=== PATIENT | male | born 1950 | race Caucasian/White ===

== ENCOUNTER 2018-07-28 00:50 | Outpatient (CLI) | payer MEDICARE, BC, SELFPAY ==
--- NOTE | 2018-07-28 11:00 | DI.RAD_ITS ---
SYMPTOM/DIAGNOSIS:POSTERIOR CHEST PAIN, NO TRAUMA LEFT RIBS AND PA AND LATERAL CHEST: A BB marked was placed in the area of the patient's pain. No rib fracture, lytic or blastic lesion is seen. The heart size is normal. The lungs are clear. No pneumothorax is seen. IMPRESSION: Negative chest and left ribs.
== END 2018-07-28 01:10 ==
PROVIDERS: PCP Internal Medicine; Visit Provider Internal Medicine
DX: R07.89 Other chest pain (principal)
CPT/HCPCS: 71046; 71100

== ENCOUNTER 2019-04-20 11:50 | Outpatient (REF) | payer MEDICARE, BC, SELFPAY ==
[2019-04-20 22:09] LABS: Hemoglobin A1C 5.2 % (4.5-6.2)
[2019-04-20 22:25] LABS: Anion Gap 12.1 mmol/L (3-11); BUN 11 mg/dL (7-18); CO2 24.9 mmol/L (21.0-32.0); CREATININE 0.85 mg/dL (0.70-1.30); Calcium 9.3 mg/dL (8.5-10.1); Chloride 102 mmol/L (98-107); Glucose 84 mg/dL (70-100); Potassium 4.2 mmol/L (3.5-5.1); Sodium 139 mmol/L (136-145)
[2019-04-22 10:00] LABS: PSA, Screening 0.7 ng/ml (0-4.5)
== END 2019-04-20 12:10 ==
LOC: NCHCN 11:50
PROVIDERS: PCP Internal Medicine; Visit Provider Internal Medicine
DX: R73.01 Impaired fasting glucose (principal); E66.9 Obesity, unspecified; Z12.5 Encounter for screening for malignant neoplasm of prostate
CPT/HCPCS: 80048; 84153; 83036

== ENCOUNTER → 2019-06-18 10:28 | Outpatient (BNVA) | payer MEDICARE, BC, SELFPAY | PROVIDERS: PCP Internal Medicine; Referring Provider Internal Medicine; Visit Provider Physical Therapy Assistant | DX: Z12.11 Encounter for screening for malignant neoplasm of colon (principal); Z86.010 Personal history of colon polyps ==

== ENCOUNTER 2019-07-13 07:08 | Day surgery (SDC) | payer MEDICARE, BC, SELFPAY ==
--- NOTE | 2019-07-13 06:43 | W.COLOREPORT ---
Date of service: 07/13/19 Time of Service: 08:24 Colonoscopy Report Date of procedure: 07/13/19 Pre-op diagnosis general: Hx of colon polyps Post-op diagnosis procedure note: other (cecal polyp, mild diverticulosis ) Procedure: Colonoscopy with polypectomy Surgeon: Aledya Knight Anesthesia proc note operative: other (General/ ASA 2/Ivy Herdnon, AJ) Estimated blood loss (mL): 3 Pathology: other (Cecal polyp) Complications: None Disposition: same day Indications: 68 y/o male with history of hyperlipidemia and obesity presents for colonoscopy screening pre-op. He reports he is currently getting over a cold. His last screening was in 2014, which was remarkable for tubular adenoma and hyperplastic polyps. He denies a family history of colon cancer. He denies any changes in bowel habits including bloody or black tarry stools, abdominal pain, diarrhea or constipation. Prep: Miralax/Dulcolax Procedure Start Time: 08:24 Procedure End Time: 08:43 Retraction Time: 15 minutes Findings: One small polyp at the TI A handfull of Diverticula in the right and left colon Procedure Description: After informed consent was obtained the patient was taken to the procedure room and placed in a left decubitous position. Monitors were applied and a time out was done. The patients name, date of , procedure, allergies to medications and metal in their body was reviewed. The patient was then sedated. Once sedated and comfortable a rectal exam was done. External exam was normal. Internal exam revealed a normal sphincter tone and no palpable masses. Unable to feel the prostate. The scope was then introduced and retro-flexed. No internal hemorrhoids, polyps or masses were identified on retro-flexion. The scope was then advanced to the cecum without difficulty. The TI and appendiceal orifice were identified. The prep was adequate. There was some bile stained mucus throughout the right colon which had to be washed off. The scope was then slowly retracted over 15 minutes back into the rectum. Polyps were removed with cold forceps at the TI. There were a handfull of Diverticula noted in the Right and left colon. The scope was removed and the patient was woken up and taken back to Same day surgery in stable condition. The patient tolerated the procedure well and there were no immediate complications. Follow up: The patient should follow up in 5 years unless they develop changes in bowel habits or other new gastrointestinal complaints.
--- NOTE | 2019-07-13 06:43 | W.PM.DSUDISC ---
Discharge Plan Disposition Patient Disposition: HOME Condition: Good Discharge Details Reason For Visit: Hx of colon polyps Attending Provider: Aleyda Knight Primary Care Provider: Russ Carroll Home Meds and New Rx's Prescriptions: Continued multivitamin [Daily Multi-Vitamin] 1 EACH tablet 1 ea PO DAILY RF: 0 atorvastatin 40 MG tablet 40 mg PO DAILY RF: 0 sertraline 100 MG tablet 100 mg PO DAILY RF: 0 aspirin [Aspir-81] 81 MG tablet,delayed release (DR/EC) 81 mg PO DAILY RF: 0 Discontinued polyethylene glycol 3350 17 gram/dose powder 238 g PO ONCE Qty: 238 RF: 0 bisacodyl [Dulcolax (bisacodyl)] 5 mg tablet,delayed release (DR/EC) 5 mg PO ONCE Qty: 4 RF: 0 Discharge Instructions Instructions: Diverticulosis (DC) Additional Instructions: Findings: 1 polyp Mild Diverticulosis Follow up: 5 years Please call if you develop: fevers >101.5 Nausea or Vomiting Abdominal pain that is not transient DAY SURGERY UNIT POST ENDOSCOPY INSTRUCTIONS 1. Because there will be medication in your system for the next 24 hours, you may feel a little sleepy. Your coordination will be affected. Therefore: a. Do not drive or operate dangerous equipment for 24 hours. b. Do not drink alcohol beverages for 24 hours (not even beer). c. Plan to go home and rest for the day. 2. Generally there are no restrictions on your activity after a day or so has gone by, but you may feel a bit fatigued for a few days. 3 After you arrive home you may have a light meal and return to a normal diet as you can tolerate it without feeling sick to your stomach. 4. After surgery, you may feel pain or discomfort. This should be only transient, but if it persists please contact your doctor. 5. If there are any questions regarding the findings of your procedure, please feel free to contact your doctor. 6. If you are unable to contact your doctor with a problem, contact the hospital at [phone]. 7. Continue all your regular medications unless directed otherwise. I understand the above instructions and have no questions. Signature of Patient or Responsible Adult Escort Date/Time Name of Responsible Adult Escort Signature of Nurse Date/Time Activity:: Activity as Tolerated Diet:: As Tolerated Discharge Orders Discharge Orders: Discharge Order (Routine); Ordered 07/13/19 Ordered By: Aleyda Knight DS: Diagnosis Discharge Diagnosis (1) Diverticulosis: Status: Acute
[2019-07-13 07:35] VITALS: BP 133/89; PULSE 73; RESP 16; TEMP 36; O2SAT 94
[2019-07-13] MEDS: Lactated Ringers 1,000 ML 80 ML IV (07:50)
--- NOTE | 2019-07-13 08:31 | BOWEL_PTH ---
PATIENT: Malick Koenig LOC: [facility] U#:[id number] AGE/SX: 68/M ROOM: RE07/13/[address]: Aleyda Knight MD : 1950 BED: DIS: 07/13/2019 SPEC #: [id number] RECD: 07/13/19 11:02 STATUS: JASMIN RE #: [id number] RADHA: 07/13/19 08:[address]: Aleyda Knight DEPT: Surgical Specimen RECD BY: Rianna Best ENTERED: 07/13/19 11:03 SP TYPE: Bowel OTHR DR: Russ Carroll Tissues: 1 - BIOPSY BOWEL Procedures: GROSS AND MICRO LEVEL 4 Comments: [id number]
[2019-07-13 09:25] VITALS: BP 137/89; PULSE 71; RESP 15; TEMP 36; O2SAT 97
== END 2019-07-13 10:07 | disposition home or self-care (01) ==
LOC: SUR 07:09
PROVIDERS: PCP Internal Medicine; Visit Provider Surgery
PROC: 0DJD8ZZ Inspection of Lower Intestinal Tract, Via Natural or Artificial Opening Endoscopic (ICD-10-PCS; CPT 45378; principal; 2019-07-13 08:30)
DX: Z12.11 Encounter for screening for malignant neoplasm of colon (principal); K63.89 Other specified diseases of intestine; Z86.010 Personal history of colon polyps; K57.30 Diverticulosis of large intestine without perforation or abscess without bleeding; Z87.19 Personal history of other diseases of the digestive system
CPT/HCPCS: 45380; 88305; J2704

== ENCOUNTER 2020-04-21 10:32 | Outpatient (REF) | payer MEDICARE, BC, SELFPAY ==
[2020-04-21 21:05] LABS: Calculated LDL 89 mg/dL (<100); Cholesterol 173 mg/dL (<200); HDL Cholesterol 56 mg/dL (40-60); Triglyceride 143 mg/dL (<150)
== END 2020-04-21 10:52 ==
LOC: NCHCN 10:32
PROVIDERS: PCP Internal Medicine; Visit Provider Internal Medicine
DX: E78.5 Hyperlipidemia, unspecified (principal); Z00.00 Encounter for general adult medical examination without abnormal findings; R73.03 Prediabetes; E66.9 Obesity, unspecified
CPT/HCPCS: 80061

== ENCOUNTER 2020-09-19 15:50 | Outpatient (REF) | payer MEDICARE, BC, SELFPAY ==
[2020-09-19 21:23] LABS: BUN 14 mg/dL (7-18); CREATININE 0.9 mg/dL (0.70-1.30); Calcium 9.1 mg/dL (8.5-10.1); Chloride 105 mmol/L (98-107); Glucose 99 mg/dL (74-106); Potassium 4.5 mmol/L (3.5-5.1); Sodium 143 mmol/L (136-145); TSH 1.24 uIU/mL (0.36-3.74); Vitamin B12 477 pg/mL (193-986)
[2020-09-19 22:09] LABS: HCT 39.8 % (40.0-50.0); HGB 13.8 g/dL (13.5-17.5); MCH 33.3 pg (27.0-33.0); MCHC 34.7 % (32.0-36.0); MCV 95.9 fL (80-95); MPV 9.7 fL (8.0-11.0); Platelet Count 205 10^3/uL (130-400); RBC 4.15 10^6/uL (4.36-5.78); RDW 11.2 % (11.8-14.1); RDW-SD 39.5 fL; WBC 5.34 10^3/uL (4.4-10.8)
[2020-09-21 12:17] LABS: Albumin 60.6 % (55.8-66.1); Total Protein 7.2 g/dL (6.3-8.2)
== END 2020-09-19 15:51 | disposition home or self-care (01) ==
LOC: NCHCN 15:50
PROVIDERS: PCP Internal Medicine; Visit Provider Internal Medicine
DX: G62.9 Polyneuropathy, unspecified (principal)
CPT/HCPCS: 80048; 85027; 82607; 84165; 84443

== ENCOUNTER → 2020-11-22 13:54 | Outpatient (BNVA) | payer MEDICARE, BC, SELFPAY | PROVIDERS: PCP Internal Medicine; Referring Provider Internal Medicine; Visit Provider Nurse Practitioner Adult Health | DX: M79.642 Pain in left hand (principal); E78.5 Hyperlipidemia, unspecified; E66.9 Obesity, unspecified; F32.9 Major depressive disorder, single episode, unspecified | CPT/HCPCS: 99203; 99215 ==

== ENCOUNTER 2021-04-01 09:08 | Emergency (ER) | payer MEDICARE, BC, SELFPAY ==
[2021-04-01 09:13] VITALS: BP 159/85; PULSE 62; RESP 16; TEMP 36.5; O2SAT 98
--- NOTE | 2021-04-01 09:15 | DI.RAD_ITS ---
Exam(s) XR KNEE LT 3V AP,LAT,ADRIENNE EXAM: XR KNEE LT 3V AP,LAT,ADRIENNE CLINICAL HISTORY: Left knee pain. TECHNIQUE: 2D digital imaging was performed of the left knee. Three images were obtained. AP, late ral and PA tunnel views were obtained. COMPARISON: No previous for comparison. FINDINGS: BONES: No acute fracture is present. No bony destructive lesion is seen. JOINTS: The knee is normally aligned. No joint effusion is seen. There are mild degenerative changes with periarticular spurring seen in the medial femoral tibial joint of the patellofemoral joint. Cho ndrocalcinosis is seen in the femoral tibial joint. SOFT TISSUE: Normal. Atherosclerosis. IMPRESSION: No acute abnormality. Mild degenerative changes. DATA REPOSITORY: RADIATION DOSE DELIVERED:
--- NOTE | 2021-04-01 09:16 | W.ED.GENAD ---
Discharge Plan Disposition Patient Disposition: HOME Condition: Stable Discharge Details Clinical Impression: Left knee sprain Primary Care Provider: Jass Edward ED Provider: Ekta Jacob Home Meds and New Rx's Prescriptions: No Action multivitamin [Daily Multi-Vitamin] 1 EACH tablet 1 ea PO DAILY RF: 0 atorvastatin 40 MG tablet 40 mg PO DAILY RF: 0 aspirin [Aspir-81] 81 MG tablet,delayed release (DR/EC) 81 mg PO DAILY RF: 0 sertraline 100 mg tablet 50 mg PO DAILY RF: 0 Discharge Instructions Instructions: Knee Sprain (ED) Additional Instructions: X-rays today are read as being within normal limits. Weightbearing as tolerated. Rest ice compression elevation. Wear splint as tolerated for pain when up walking around. When at rest no need to wear splint. Please take Tylenol every 4-6 hours as needed for pain. If continued pain in 1 to 2 weeks please call and make an appointment with orthopedics for follow-up. Follow up with primary care provider in 3-5 days. Return to ED sooner if any worsening or concerns. Increase oral fluids. Please take Tylenol or Ibuprofen with food every 4-6 hours as needed for pain and swelling. Referrals: Jass Edward MD [Primary Care Provider] - Jovon Thakkar MD [[facility] STAFF PHYSICIAN] - Return if symptoms worsen Discharge Data Discharge Date/Time-TO BE ENTERED AT DEPARTURE: 04/01/21 11:02 Medical Decision Making 30-year-old male presents to the ER with chief complaint of left knee pain after a twisting movement yesterday. Patient reports pain with weightbearing to the lateral aspect of the joint. He denies any fall. No previous surgeries to the knee. No obvious deformity or swelling noted on exam. He did take aspirin prior to arrival. He does have a past medical history of depression, obesity, arthralgia, diverticulosis, umbilical hernia, hyperlipidemia. He has had arthroscopic knee surgery in the past. He denies any surgery on his left knee. X-rays ordered at this time to rule out joint effusion or bony abnormality. I do suspect ligament sprain. Imaging protocol: XR Left knee. Views: 3 views. COMPARISON: No relevant prior studies available. FINDINGS: Bones/joints: No fracture or other osseous abnormality. Joint spaces are well preserved. No significant effusion. No varus or valgus angulation. Soft tissues: Normal. IMPRESSION: Normal knee. X-ray results are noted above. Will order a hinged knee brace for patient discussed weightbearing as tolerated. RICE procedures and follow-up with orthopedics if needed in 1 to 2 weeks. Discussed x-ray results with patient. Patient remains alert and oriented hemodynamically stable but ambulatory upon discharge. This text was generated using [employer] dictation system, please disregard any oddities of phrase or misspellings. HPI General Mode of arrival: ambulatory. Date/Time Provider Initiated Documentation: 04/01/21 09:09. Limitations to Documentation: no limitations. Information obtained by: patient and old records reviewed. HPI Narrative: 30-year-old male presents to the ER with chief complaint of left knee pain after a twisting movement yesterday. Patient reports pain with weightbearing to the lateral aspect of the joint. He denies any fall. No previous surgeries to the knee. No obvious deformity or swelling noted on exam. He did take aspirin prior to arrival. He does have a past medical history of depression, obesity, arthralgia, diverticulosis, umbilical hernia, hyperlipidemia. He has had arthroscopic knee surgery in the past. He denies any surgery on his left knee. Related Data Home Medications Medication Instructions Recorded Confirmed aspirin [Aspir-81] 81 mg PO DAILY tab-cap 06/14/14 04/01/21 atorvastatin 40 mg PO DAILY tab-cap 06/14/14 04/01/21 multivitamin [Daily Multi-Vitamin] 1 ea PO DAILY 06/14/14 04/01/21 sertraline 100 mg tablet 50 mg PO DAILY tab-cap 09/27/20 04/01/21 Allergies Allergy/AdvReac Type Severity Reaction Status Date / Time No Known Allergies Allergy Unverified 04/01/21 09:17 Review of Systems All systems reviewed & are unremarkable except as noted in HPI and below Musculoskeletal Musculoskeletal: Reports as per HPI and Reports arthralgias [facility] Medical History Actinic keratosis of multiple sites of head and neck Diverticulosis Hearing impaired person High cholesterol History of depression History of positive PPD Hx of adenomatous colonic polyps Left hand pain Perennial allergic rhinitis Peripheral neuropathy Positive PPD Seborrheic keratosis Skin lesion of face Tinnitus of both ears Surgical History History of colonoscopy (~07/13/19) 2015-Tubular adenoma Hx of arthroscopic knee surgery Social History Smoking/Tobacco Use Status: Former Tobacco Use Quit Date: 07/01/84 Smoking risk assessment performed?: Yes Alcohol Intake: current Alcohol Intake frequency: 3 or more drinks per day Alcohol type: beer Drug use: Occasionally Substance use type: marijuana Details: alcohol: t-4, 4 beers. Marijuana: t-5, bowl Household members: spouse Housing: house Number of Children: 2 number of grandchildren: 1 What is your relationship status?: Panel score (0-1 are the most socially isolated patients): 1 What type of physical activity do you participate in: walking Seatbelt use: always Do you feel safe at home: Yes Do you feel safe in your relationship?: Yes Exam Narrative Exam Narrative: Constitutional: Alert and oriented x3. Appears stated age. Normal body habitus. Head: Normocephalic, no trauma. Chest: RRR, Normal S1, S2, distal pulses intact. Resp: Lungs clear to auscultation bilaterally, no wheezes, rales, or rhonchi. Musculoskeletal: 5/5 strength to all four extremities. No obvious deformity, no obvious swelling. Does have some lateral joint tenderness. Negative anterior posterior drawer test. Distal pulses intact. Extremity is pink warm dry. No edema. Skin: No suspicious rashes or lesions. Capillary refill less than 2 sec. Neurologic: Alert and oriented x 3.
--- NOTE | 2021-04-01 10:22 | DI.VRAD_ITS ---
PROCEDURE INFORMATION: Exam: XR Left Knee Exam date and time: 04/01/2021 9:17 AM Age: 70 years old Clinical indication: Other: Left knee pain TECHNIQUE: Imaging protocol: XR Left knee. Views: 3 views. COMPARISON: No relevant prior studies available. FINDINGS: Bones/joints: No fracture or other osseous abnormality. Joint spaces are well preserved. No significant effusion. No varus or valgus angulation. Soft tissues: Normal. IMPRESSION: Normal knee. Dictated and Authenticated by: Greg Hernandez MD. Ordering:LEELEE Dash MD
[2021-04-01 11:03] VITALS: BP 159/85; PULSE 62; RESP 16; TEMP 36.5; O2SAT 98
== END 2021-04-01 11:02 | disposition home or self-care (01) ==
PROVIDERS: Emergency Provider Registered Nurse Emergency; PCP Family Medicine
DX: S83.8X2A Sprain of other specified parts of left knee, initial encounter (principal); X50.9XXA Other and unspecified overexertion or strenuous movements or postures, initial encounter
CPT/HCPCS: 29505; 73562; 99283

== ENCOUNTER 2021-06-13 13:08 | Outpatient (CLI) | payer MEDICARE, BC, SELFPAY ==
--- NOTE | 2021-06-13 12:45 | DI.RAD_ITS ---
Exam(s) XR SHOULDER RT COMPLETE 2+V EXAM: XR SHOULDER RT COMPLETE 2+V CLINICAL HISTORY: right shoulder pain. TECHNIQUE: 2D digital imaging was performed of the right shoulder. Two images were obtained. AP an d axillary views were obtained. COMPARISON: No exams were available for comparison FINDINGS: BONES: No acute fracture is present. No bony destructive lesion is seen. JOINTS: No dislocation present. Mild degenerative changes are seen at both the acromioclavicular join t and glenohumeral joint. SOFT TISSUE: Calcification in the soft tissues adjacent to the greater tuberosity is seen consistent with calcific tendinitis. IMPRESSION: Degenerative changes in calcific tendinitis involving the right shoulder as described. DATA REPOSITORY: RADIATION DOSE DELIVERED:
== END 2021-06-13 13:09 | disposition home or self-care (01) ==
LOC: DIORS 13:08
PROVIDERS: PCP Family Medicine; Referring Provider Family Medicine; Visit Provider Student in an Organized Health Care Education/Training Program
DX: M25.511 Pain in right shoulder (principal); M75.31 Calcific tendinitis of right shoulder
CPT/HCPCS: 99203; 99214; 73030

== ENCOUNTER 2021-07-07 00:49 | Outpatient (CLI) | payer MEDICARE, BC, SELFPAY ==
--- NOTE | 2021-07-07 10:00 | DI.RAD_ITS ---
Exam(s) XR ANKLE RT COMPLETE EXAM: XR ANKLE RT COMPLETE CLINICAL HISTORY: RT ANKLE PAIN, M25.571. TECHNIQUE: 2D digital imaging was performed of the right ankle. Three images were obtained. AP, la teral and oblique views were obtained. COMPARISON: No exams were available for comparison FINDINGS: BONES: No acute fracture is present. No bony destructive lesion is seen. Well corticated osseous den sities are seen at the tip of the lateral malleolus. These likely reflect old injury. JOINTS: The ankle mortise is normally aligned. SOFT TISSUE: Normal. IMPRESSION: No acute abnormality. DATA REPOSITORY: RADIATION DOSE DELIVERED:
== END 2021-07-07 01:09 ==
PROVIDERS: PCP Family Medicine; Visit Provider Family Medicine
DX: M25.571 Pain in right ankle and joints of right foot (principal)
CPT/HCPCS: 73610

== ENCOUNTER → 2021-08-15 10:27 | Outpatient (BNVA) | payer MEDICARE, BC, SELFPAY | PROVIDERS: PCP Family Medicine; Referring Provider Family Medicine; Visit Provider Student in an Organized Health Care Education/Training Program | DX: M75.31 Calcific tendinitis of right shoulder (principal) | CPT/HCPCS: 20610; 99214; J1030 ==

== ENCOUNTER 2021-09-22 02:06 | Outpatient (CLI) | payer MEDICARE, BC, SELFPAY ==
--- NOTE | 2021-09-22 07:00 | DI.MRI_ITS ---
Exam(s) MR UPPER JOINT RT WO EXAM: MR UPPER JOINT RT WO CLINICAL HISTORY: continued Right shoulder pain,CALCIFIC TENDONITIS,M75.31. TECHNIQUE: Multiplanar multisequence MRI was performed. COMPARISON: No exams were available for comparison FINDINGS: BONES: There is no fracture or contusion pattern. JOINTS: Mild degenerative changes are seen at the acromioclavicular joint. The glenohumeral joint is normal. TENDONS: Supraspinatus: There is a full-thickness tear of the supraspinatus tendon anteriorly. There is tendi nosis of the underlying supraspinatus. Infraspinatus: Unremarkable. Subscapularis: There is tendinosis of the subscapularis tendon. Teres Minor: Unremarkable. Biceps and [place]: Unremarkable. MUSCLES: There is mild fatty atrophy of the teres minor muscle. The remaining visualized portions of the rotator cuff muscles are unremarkable. GLENOID LABRUM: Unremarkable on this noncontrast examination. SOFT TISSUES: Unremarkable. LIGAMENTS: Unremarkable. OTHER: There is fluid in the subacromial subdeltoid bursa. IMPRESSION: 1. Full-thickness tear of the supraspinatus tendon. 2. Tendinosis of the supraspinatus and subscapularis tendons. 3. Mild fatty atrophy of the teres minor muscle. 4. Degenerative changes of the AC joint. DATA REPOSITORY:
== END 2021-09-22 02:26 ==
PROVIDERS: PCP Family Medicine; Visit Provider Student in an Organized Health Care Education/Training Program
DX: M75.31 Calcific tendinitis of right shoulder (principal); M19.011 Primary osteoarthritis, right shoulder; M75.101 Unspecified rotator cuff tear or rupture of right shoulder, not specified as traumatic
CPT/HCPCS: 73221

== ENCOUNTER → 2021-09-26 08:40 | Outpatient (BNVA) | payer MEDICARE, BC, SELFPAY | PROVIDERS: PCP Family Medicine; Referring Provider Family Medicine; Visit Provider Student in an Organized Health Care Education/Training Program | DX: M75.31 Calcific tendinitis of right shoulder (principal); M75.21 Bicipital tendinitis, right shoulder; M75.101 Unspecified rotator cuff tear or rupture of right shoulder, not specified as traumatic; M75.51 Bursitis of right shoulder | CPT/HCPCS: 99214 ==

== ENCOUNTER → 2021-11-07 08:44 | Outpatient (BNVA) | payer MEDICARE, BC, SELFPAY | PROVIDERS: PCP Family Medicine; Referring Provider Family Medicine; Visit Provider Student in an Organized Health Care Education/Training Program | DX: M75.101 Unspecified rotator cuff tear or rupture of right shoulder, not specified as traumatic (principal); M75.31 Calcific tendinitis of right shoulder | CPT/HCPCS: 99213 ==

== ENCOUNTER 2022-08-07 11:27 | Outpatient (REF) | payer MEDICARE, BC, SELFPAY ==
[2022-08-07 16:02] LABS: ALT 38 U/L (16-63); AST 58 U/L (15-37); Alkaline Phosphatase 57 U/L (46-116); Anion Gap 6.8 mmol/L (3-11); BUN 13 mg/dL (7-18); Bilirubin, Total 0.3 mg/dL (0.2-1.0); CO2 30.2 mmol/L (21.0-32.0); CREATININE 0.8 mg/dL (0.70-1.30); Calcium 9.1 mg/dL (8.5-10.1); Calculated LDL 74 mg/dL (<100); Chloride 103 mmol/L (98-107); Cholesterol 142 mg/dL (<200); Estimated GFR 94.03 (mL/min/1.73m2); Glucose 117 mg/dL (74-106); HDL Cholesterol 60 mg/dL (40-60); Potassium 5.2 mmol/L (3.5-5.1); Sodium 140 mmol/L (136-145); Total Protein 6.9 g/dL (6.4-8.2); Triglyceride 44 mg/dL (<150)
== END 2022-08-07 11:28 | disposition home or self-care (01) ==
LOC: NCHCN 11:27
PROVIDERS: PCP Family Medicine; Visit Provider Family Medicine
DX: E78.5 Hyperlipidemia, unspecified (principal); E66.9 Obesity, unspecified
CPT/HCPCS: 80053; 80061

== ENCOUNTER 2023-08-14 14:00 | Outpatient (REF) | payer MEDICARE, BC, SELFPAY ==
[2023-08-14 16:41] LABS: Hemoglobin A1C 5.7 % (<5.7)
[2023-08-14 17:12] LABS: ALT 39 U/L (16-63); AST 56 U/L (15-37); Albumin 4.1 g/dL (3.4-5.0); Alkaline Phosphatase 54 U/L (46-116); Anion Gap 9.1 mmol/L (3-11); BUN 11 mg/dL (7-18); Bilirubin, Total 0.7 mg/dL (0.2-1.0); CO2 29.9 mmol/L (21.0-32.0); CREATININE 0.8 mg/dL (0.70-1.30); Calcium 9.3 mg/dL (8.5-10.1); Calculated LDL 81 mg/dL (<100); Chloride 103 mmol/L (98-107); Cholesterol 164 mg/dL (<200); Estimated GFR 93.45 (mL/min/1.73m2); Glucose 104 mg/dL (74-106); HDL Cholesterol 71 mg/dL (40-60); Sodium 142 mmol/L (136-145); Total Protein 7.5 g/dL (6.4-8.2); Triglyceride 61 mg/dL (<150)
== END 2023-08-14 14:01 | disposition home or self-care (01) ==
LOC: NCHCN 14:00
PROVIDERS: PCP Family Medicine; Visit Provider Family Medicine
DX: E78.5 Hyperlipidemia, unspecified (principal); R73.03 Prediabetes
CPT/HCPCS: 80053; 80061; 83036

== ENCOUNTER 2024-04-29 00:50 | Outpatient (CLI) | payer MEDICARE, BC, SELFPAY ==
--- NOTE | 2024-04-29 09:50 | DI.RAD_ITS ---
Exam(s) XR HIP LT COMPLETE AP PELVIS EXAM: XR HIP LT COMPLETE AP PELVIS CLINICAL HISTORY: LT HIP PAIN,M25.552. TECHNIQUE: 2D digital imaging was performed. Two views. COMPARISON: No exams were available for comparison FINDINGS: BONES: No acute fracture is present. No bony destructive lesion is seen. JOINTS: No dislocation present. The SI joints and pubic symphysis are intact. Mild bilateral acetabul ar spurring. SOFT TISSUE: Normal. IMPRESSION: mild degenerative changes of both hips. DATA REPOSITORY: RADIATION DOSE DELIVERED:
== END 2024-04-29 01:10 ==
LOC: DI 00:51
PROVIDERS: PCP Family Medicine; Visit Provider Family Medicine
DX: M16.0 Bilateral primary osteoarthritis of hip (principal)
CPT/HCPCS: 73502

== ENCOUNTER → 2024-07-09 13:37 | Outpatient (BNVA) | payer MEDICARE, BC, SELFPAY | PROVIDERS: PCP Family Medicine; Referring Provider Family Medicine | DX: M70.62 Trochanteric bursitis, left hip (principal); M70.72 Other bursitis of hip, left hip | CPT/HCPCS: 99213 ==

== ENCOUNTER 2024-08-06 08:38 | Outpatient (REF) | payer MEDICARE, BC, SELFPAY ==
[2024-08-06 14:25] LABS: Abs Immature Grans 0.01 10^3/uL (0.0-0.06); Absolute Basophil Count 0.04 10^3/uL (0.0-0.2); Absolute Eosinophil Count 0.19 10^3/uL (0.0-0.7); Absolute Lymphocyte Count 1.03 10^3/uL (1.2-3.4); Absolute Monocyte Count 0.36 10^3/uL (0.1-0.8); Absolute Neutrophil Count 2.68 10^3/uL (1.2-6.7); Basophils % 0.9 %; Eosinophils % 4.4 %; HCT 45.6 % (40.0-50.0); HGB 15.2 g/dL (13.5-17.5); Immature Grans % 0.2 %; Lymphocytes % 23.9 %; MCH 32.3 pg (27.0-33.0); MCHC 33.3 % (32.0-36.0); MCV 97 fL (80-95); MPV 9.7 fL (8.0-11.0); Monocytes % 8.4 %; Neutrophils % 62.2 %; Platelet Count 220 10^3/uL (130-400); RBC 4.71 10^6/uL (4.36-5.78); RDW 11.1 % (11.8-14.1); WBC 4.31 10^3/uL (4.4-10.8)
[2024-08-06 14:50] LABS: Hemoglobin A1C 5.6 % (<5.7)
[2024-08-06 14:59] LABS: ALT 34 U/L (16-63); AST 62 U/L (15-37); Albumin 4.2 g/dL (3.4-5.0); Alkaline Phosphatase 51 U/L (46-116); Anion Gap 4.7 mmol/L (3-11); BUN 11 mg/dL (7-18); Bilirubin, Total 0.62 mg/dL (0.2-1.0); CO2 32.3 mmol/L (21.0-32.0); CREATININE 0.9 mg/dL (0.70-1.30); Calcium 9.3 mg/dL (8.5-10.1); Calculated LDL 72 mg/dL (<100); Chloride 102 mmol/L (98-107); Cholesterol 157 mg/dL (<200); Estimated GFR 89.62 (mL/min/1.73m2); Glucose 116 mg/dL (74-106); HDL Cholesterol 72 mg/dL (40-60); Potassium 5.1 mmol/L (3.5-5.1); Sodium 139 mmol/L (136-145); Total Protein 7.5 g/dL (6.4-8.2); Triglyceride 65 mg/dL (<150)
== END 2024-08-06 08:39 | disposition home or self-care (01) ==
LOC: NCHCN 08:38
PROVIDERS: PCP Family Medicine; Visit Provider Family Medicine
DX: E78.5 Hyperlipidemia, unspecified (principal); R73.03 Prediabetes; Z00.00 Encounter for general adult medical examination without abnormal findings
CPT/HCPCS: 80053; 80061; 83036; 85025

== ENCOUNTER → 2024-08-10 10:28 | Outpatient (BNVA) | payer MEDICARE, BC, SELFPAY | PROVIDERS: PCP Family Medicine; Referring Provider Family Medicine; Visit Provider Student in an Organized Health Care Education/Training Program | DX: M70.72 Other bursitis of hip, left hip (principal); M70.62 Trochanteric bursitis, left hip | CPT/HCPCS: 99213 ==

== ENCOUNTER 2024-08-31 01:18 | Outpatient (CLI) | payer MEDICARE, BC, SELFPAY ==
--- NOTE | 2024-08-31 08:20 | DI.MRI_ITS ---
Exam(s) MR LOWER JOINT LT WO EXAM: MR LOWER JOINT LT WO CLINICAL HISTORY: PAIN,trochanteric bursitis lt hip,m70.62,ischial bursitis, lt,M70.72 TECHNIQUE: Multiplanar multisequence MRI of the hip was performed. COMPARISON: CR XR HIP LT COMPLETE AP PELVIS from 04/29/2024 FINDINGS: MARROW:There is no evidence of fracture, bone contusion, nor avascular necrosis. There are no signif icant osseous lesions.There is a small degenerative cysts in the lateral aspect of the right femoral head measuring 5-6 mm. EFFUSION: There is a physiologic amount of fluid in the left hip joint. There appears to be a small joint effusion in the opposite-right hip. BURSAE: There is no evidence of trochanteric bursitis. There is no evidence of iliopsoas bursitis no r signal abnormality in the lesser trochanter.. HIP JOINT SPACE: There is moderate amount of generalize articular cartilage loss in the left hip; sli ghtly less so in the right hip.There is no hypertrophy of the ligamentum teres nor signal abnormality at the fovea centralis. LABRUM: There is cystic degenerative change in the superior-anterosuperior left hip labrum and there is a paralabral cyst extending from this level superiorly measuring 1.3 x 1.1 cm. There are degenera tion subarticular cysts in the superolateral left acetabulum. TENDONS: There is some fluid collection deep to the left gluteus medius, consistent with element of g luteus minimus bursitis mild signal abnormality in the left gluteus medius musculotendinous junction. No high-grade tear. No evidence of greater trochanter bursitis ISCHIAL TUBEROSITY/HAMSTRING: There is significant fluid signal at the level of the common hamstrings attachment site of both ischial tuberosities, left more so than right. Findings in the level are co nsistent with bilateral ischial tuberosity bursitis (left more so than right). Some partial tearing of the common hamstrings tendons noted. There is no abnormal intraosseous signal at the level of the ischial tuberosities and pubic rami. There are small degenerative cysts in the right-side of the symphysis pubis incidentally noted. OTHER: Moderately enlarged prostate. Relatively uniform thickening of the urinary bladder wall. No obturator adenopathy. IMPRESSION: 1. There is bilateral (left greater than right) ischial tuberosity bursitis. 2. Left gluteus minimus bursitis 3. Moderate left hip osteoarthritis and milder right hip osteoarthritis. There is no significant lef t hip joint effusion. There is a small right hip joint effusion. No obvious loose intra-articular b odies. 4. Labral tearing in the anterior superior left labrum. There appears to be a paralabral cyst as wel l as degenerative subarticular cysts in the superolateral left acetabulum at this level. 5. enlarged prostate and relatively uniform bladder wall thickening consistent with element of outlet obstruction. DATA REPOSITORY:
--- NOTE | 2024-08-31 17:54 | DI.VRAD_ITS ---
PROCEDURE INFORMATION: Exam: MR Left Lower Extremity Joint Without Contrast; Hip Exam date and time: 08/31/2024 7:42 AM Age: 73 years old Clinical indication: Pain; Hip; Left TECHNIQUE: Imaging protocol: Magnetic resonance imaging of the left lower extremity joint without contrast. Exam focused on the hip. Total images: 582 COMPARISON: CR XR HIP LT COMPLETE AP PELVIS 04/29/2024 9:42 AM FINDINGS: Bones/joints: No significant bone marrow edema. Bilateral physiologic hip fluid. [id number] bilateral hip articular cartilaginous thinning. 6 mm cyst lateral aspect right femoral head. 9 mm nonspecific well-circumscribed STIR hyperintense left sacral lesion which is T1 occult. Subchondral likely degenerative cysts lateral acetabulum, left greater than right. Fluid adjacent to both ischial tuberosities, left greater than right. Subchondral degenerative cyst right symphysis pubis. Labrum: STIR hyperintense foci bilateral hip labrum. Soft tissues: Small collection of fluid deep to left gluteus minimus muscle. Bladder: Mild smooth bladder wall thickening. Reproductive: Prostatomegaly. IMPRESSION: 1. Bilateral ischial tuberosity bursitis. 2. Left gluteus minimus bursitis. 3. Hip osteoarthritis, left greater than right. 4. Possible small labral tears. 5. Bladder wall thickening possibly outlet obstruction related. Dictated and Authenticated by: Greg Adorno MD. Orderin Xander Lomeli MD
== END 2024-08-31 01:38 ==
LOC: DI 01:19
PROVIDERS: PCP Family Medicine; Visit Provider Student in an Organized Health Care Education/Training Program
DX: M70.62 Trochanteric bursitis, left hip
CPT/HCPCS: 73721

== ENCOUNTER → 2024-09-17 08:08 | Outpatient (BNVA) | payer MEDICARE, BC, SELFPAY | PROVIDERS: PCP Family Medicine; Referring Provider Family Medicine; Visit Provider Student in an Organized Health Care Education/Training Program | DX: M70.72 Other bursitis of hip, left hip (principal); M70.62 Trochanteric bursitis, left hip | CPT/HCPCS: 99213 ==

== ENCOUNTER 2025-01-20 14:01 | Outpatient (REF) | payer MEDICARE, BC, SELFPAY | END 2025-01-20 14:02 | disposition home or self-care (01) | LOC: NCHCN 14:01 | PROVIDERS: PCP Family Medicine; Visit Provider Family Medicine | DX: Z78.9 Other specified health status (principal) | CPT/HCPCS: 86765 ==

== ENCOUNTER 2025-01-27 03:00 | Outpatient (CLI) | payer MEDICARE, BC, SELFPAY ==
--- NOTE | 2025-01-27 08:00 | DI.RAD_ITS ---
Exam(s) XR FOOT RT COMPLETE EXAM: XR FOOT RT COMPLETE CLINICAL HISTORY: Painful Foreign body rt foot, M79.671, rt foot pain, S90.851A. TECHNIQUE: 2D digital imaging was performed. Three views. COMPARISON: CR LEFT HEEL (OS CALCIS) from 02/14/2010 FINDINGS: BONES: No acute fracture is present. No bony destructive lesion is seen. Tiny plantar calcaneal spur. Ossicle posterior to the talus. JOINTS: No dislocation present. Minimal degenerative changes. SOFT TISSUE: Normal. IMPRESSION: small plantar calcaneal spur. DATA REPOSITORY: RADIATION DOSE DELIVERED:
== END 2025-01-27 03:20 ==
LOC: DI 03:00
PROVIDERS: PCP Family Medicine; Visit Provider Podiatrist
DX: M79.671 Pain in right foot (principal); R20.2 Paresthesia of skin; B07.0 Plantar wart; S90.851A Superficial foreign body, right foot, initial encounter; W25.XXXA Contact with sharp glass, initial encounter; Y93.01 Activity, walking, marching and hiking
CPT/HCPCS: 17110; 73630

== ENCOUNTER → 2025-02-17 08:52 | Outpatient (BNVA) | payer MEDICARE, BC, SELFPAY | PROVIDERS: PCP Family Medicine; Referring Provider Family Medicine; Visit Provider Podiatrist | DX: B07.0 Plantar wart (principal); B35.3 Tinea pedis; M79.671 Pain in right foot; R20.2 Paresthesia of skin | CPT/HCPCS: 99213; 17110 ==

== ENCOUNTER → 2025-03-31 08:53 | Outpatient (BNVA) | payer MEDICARE, BC, SELFPAY | PROVIDERS: PCP Family Medicine; Referring Provider Family Medicine; Visit Provider Podiatrist | DX: B35.3 Tinea pedis (principal); B07.0 Plantar wart; M79.671 Pain in right foot; R20.2 Paresthesia of skin | CPT/HCPCS: 17110 ==

== ENCOUNTER → 2025-05-19 02:03 | Outpatient (CLI) | payer MEDICARE, BC, SELFPAY ==
--- NOTE | 2025-05-19 | DI.RAD_ITS ---
Exam(s) XR CHEST 2V PA LATERAL EXAM: XR CHEST 2V PA LATERAL CLINICAL HISTORY: ATYPICAL PNEUMONIA,J18.9. TECHNIQUE: 2D digital imaging was performed. COMPARISON: No exams were available for comparison FINDINGS: 2 views: Heart size is normal. The mediastinum is not widened. Lungs are clear. No infiltrates nor pleural effusions. IMPRESSION: No acute pulmonary findings. DATA REPOSITORY: RADIATION DOSE DELIVERED:
== END ==
LOC: DI 02:03
PROVIDERS: PCP Family Medicine; Visit Provider Family Medicine
DX: J18.9 Pneumonia, unspecified organism (principal)
CPT/HCPCS: 71046